=== PATIENT | male | born 1980 | race Caucasian/White ===

== ENCOUNTER 2025-11-09 20:25 | Emergency (ER) | payer OTHER, SELFPAY ==
[2025-11-09 20:35] VITALS: BP 148/95; PULSE 122; RESP 18; TEMP 37.6; O2SAT 100; BMI 28.0
[2025-11-09 20:39] VITALS: BP 148/95; PULSE 120; RESP 18; TEMP 37.6; O2SAT 98
--- NOTE | 2025-11-09 20:45 | XR_ITS ---
PROCEDURE INFORMATION: Exam: XR Chest Exam date and time: 11/09/2025 9:32 PM Age: 45 years old Clinical indication: Pain; Cough and shortness of breath; Other: Cp TECHNIQUE: Imaging protocol: Radiologic exam of the chest. Views: 2 views. COMPARISON: No relevant prior studies available. FINDINGS: Lungs: Normal. Pleural spaces: Normal. Heart/Mediastinum: Normal. Bones/joints: No acute abnormality. IMPRESSION: No acute findings.
[2025-11-09 20:48] LABS: Coronavirus 19, PCR Not Detected (NotDetected); Influenza A, PCR Not Detected (NotDetected)
--- NOTE | 2025-11-09 20:48 | ED_ITS ---
<Statement entered by Shawn Galvez DO - 11/10/25 01:56> I was consulted by the FERNY, and we discussed the complexity of problems being addressed. I approved the treatment and management plan for this patient's care in the emergency department, thus performing a substantive portion of the medical decision making. Shawn Galvez DO Agree with FERNY note above. During this patient's stay we did obtain an EKG which was personally interpreted by me and demonstrated sinus tachycardia rate of 114 bpm, normal axis, no MD prolongation, narrow QRS, no QTc prolongation. No ST elevation or depression. No overt signs of ischemia or arrhythmia. Discharge Plan Disposition Patient Disposition: Home, Self-Care Prescriptions Prescriptions: New oseltamivir [Tamiflu] 75 mg capsule 75 mg PO DAILY Qty: 5 0RF Activity Restrictions/Add. Instructions Additional Instructions/Restrictions: You were seen in emergency room department today and diagnosed with influenza. You have been called in prescription for Tamiflu. Since you are on the tail end of the 48 hour sven of when symptoms initially started, Tamiflu may make your symptoms a bit worse. You may get very minimal relief/benefits from taking Tamiflu. You should take a total of 5 doses of Tamiflu. Alternate with Motrin and Tylenol for symptom relief body aches and chills. Clinical Impressions Clinical Impression: Influenza Instructions Patient Instructions: Cough Print Language Print Language: Albanian Discharge ED Provider: Shawn Galvez General Adult HPI General Chief complaint: Cough Stated complaint: dizziness,pain in arms,pain all over body Time Seen by Provider: 11/09/25 20:37 Mode of Arrival: Ambulatory Source of Information: Patient Description of Symptoms (Recalled from ER Triage Doc. by RN): PT presents to the ED for evaluation of Cough/congestion, and facial tingling. PT has been feeling bad x3 days History of Present Illness HPI narrative: Danilo Dsouza is a 45-year-old male who presents emergency room tonight with complaints of generalized malaise of fatigue, headache, chest pressure, mild shortness of breath. Patient is from [place], flew in from [facility] 3 days ago. Denies any otherwise known sick contacts. States he has had some generalized weakness that started 3 days ago, chest tightness, and paresthesias throughout his whole body. Also complains of a headache, sinus congestion and chest congestion. Subjective fever reported with bodyaches and chills. Patient has no prior medical history. Does not take any medications daily. No history of DVT or PE, no history of heart disease, no stents in his heart. Does not take any blood thinners. Denies any alcohol, illicit drug use. Does use a vape. Please note that the above description of symptoms, and this electronic medical record under categorization of recalled from ER triage doctor by RN are reflective of an initial nursing assessment, however, is not reflective of my full history and physical exam that was personally taken and clarified. Consequentially, this proceeding description of symptoms, which may include the patient's cauterized chief complaint in the EMR, do not reflect my personal clinical impression, and the ultimate description of the history of present illness stated complaints should be deferred to this section of this note. Unless stated otherwise were congruent with the section of the note, additional signs, symptoms, or incongruence can be interpreted as in or accurate with my clinical impression. Related Data Previous Rx's ?Medication ?Instructions ?Recorded oseltamivir 75 mg capsule (Tamiflu) 75 mg PO DAILY #5 caps 11/09/25 Allergies Allergy/AdvReac Type Severity Reaction Status Date / Time No Known Allergies Allergy Verified 11/09/25 21:06 [facility] Disclaimer: The information contained in this section may have been updated after the patient was seen, as this information can be updated by other users. Social History (Updated 11/09/25 @ 22:29 by Dedra Sutherland APRN) Smoking Status: Current every day smoker alcohol intake: never current occupational status: employed Travel in the last 8 weeks?: Inside the [place] Have you lived/traveled outside US in past 30 days?: No Contact w/someone who lives/traveled outside US past 30 days?: No Exposure to someone with infectious disease in past 14 days?: No Do you have a fever (greater than 100.4 F or 38 C)?: No Have you tested positive for COVID-19?: No Exposed to someone with COVID-19 in past 14 days?: No Do you have a sore throat?: No Do you have a cough?: No Do you have any weakness?: No Do you have any diarrhea?: No Are you experiencing any unusual bleeding?: No Do you have any muscle aches/pain?: No Do you have any abdominal pain?: No Are you experiencing loss of taste or smell?: No ROS Obtained: Yes All systems reviewed & no additional complaints except as documented Physical Exam General General appearance: alert and in no apparent distress Head Head exam: atraumatic and normocephalic Eye Eye exam: Present PERRL and EOMI Neck Neck exam: Present trachea midline Chest Chest inspection: Present symmetric chest wall rise Respiratory Respiratory exam: Present normal lung sounds bilaterally Cardiovascular Cardiovascular exam: Present regular rate and normal rhythm Abdominal Exam Abdominal exam: Present soft and normal bowel sounds; Absent tenderness Extremities Exam Extremities exam: Present normal inspection and full ROM Neurological Exam Neurological exam: Present alert and oriented X3 Skin Skin exam: Present warm, dry and intact Medical Decision Making Medical Records Screening: Per USPSTF and CDC recommendations, given the prevalence of disease in our region, it is our hospital?s policy to screen for HIV and viral Hepatitis for all patients aged 18 and over and those with ongoing risk factors. Naeem Inquiry Pt receiving controlled substance: No Vital Signs: 11/09/25 20:35 11/09/25 20:39 11/09/25 21:00 Temperature 99.7 F H 99.7 F H Temperature Source Oral Pulse Rate 120 H 110 H Pulse Rate [Right] 122 H Respiratory Rate 18 18 Blood Pressure 148/95 H 144/91 H Blood Pressure [Right Arm] 148/95 H Blood Pressure Mean 102 Blood Pressure Mean [Right Arm] 112 02 Sat by Pulse Oximetry 100 98 96 Oxygen Delivery Method Room Air Room Air 11/09/25 22:21 Temperature 98.6 F Temperature Source Oral Pulse Rate 100 H Pulse Rate [Right] Respiratory Rate 16 Blood Pressure 133/73 Blood Pressure [Right Arm] Blood Pressure Mean Blood Pressure Mean [Right Arm] 02 Sat by Pulse Oximetry Oxygen Delivery Method Room Air Lab Data Lab Results 11/09/25 20:43: SARS-CoV-2 (PCR) Not detected, Influenza A Untype (PCR) Not detected, Influenza Type B (PCR) Detected A 11/09/25 20:55: WBC 8.9, RBC 5.27, Hgb 15.7, Hct 45.7, MCV 86.7, MCH 29.8, MCHC 34.4, RDW 12.5, Plt Count 178, MPV 9.3, Neut % (Auto) 81.2 H, Lymph % (Auto) 11.1, Armstrong % (Auto) 7.3, Eos % (Auto) 0.0 L, Baso % (Auto) 0.3, Neut # (Auto) 7.2, Lymph # (Auto) 1.0, Armstrong # (Auto) 0.7, Eos # (Auto) 0.0, Baso # (Auto) 0.0, Sodium 135 L, Potassium 4.0, Chloride 99, Carbon Dioxide 24, Anion Gap 16.0 H, BUN 13, Creatinine 1.20, Estimated Creat Clear 112, Estimated GFR 65, Est GFR ( Amer) 79, Glucose 109 H, Calcium 9.0, Total Bilirubin 1.0, AST 33, ALT 32, Alkaline Phosphatase 62, Troponin I < 0.01, Total Protein 7.9, Albumin 4.9, Globulin 3.0, Albumin/Globulin Ratio 1.6 11/09/25 20:55 11/09/25 20:55 Orders (Tests/Meds): ED MEDICATIONS Discontinued Medications Generic Name Dose Route Start Last Admin Trade Name Freq PRN Reason Stop Dose Admin Sodium Chloride 500 mls @ 999 mls/hr 11/09/25 20:50 11/09/25 21:56 Sod Chlor 0.9% 1000ml Bag IV 11/09/25 21:20 Infused .Q31M ONE Infusion Ketorolac Tromethamine 30 mg 11/09/25 21:52 11/09/25 21:58 Ketorolac 30mg/Ml Vial IV 11/09/25 21:53 30 mg ONCE ONE Administration ORDERS Category Date Time Status CXR 2 view (NOT portable) [XR chest 2V] Stat Exams 11/09/25 20:45 Taken CBC w/Auto Diff [Complete Blood Count Auto Diff] Stat Lab 11/09/25 20:55 Completed CMP [Comprehensive Metabolic Panel] Stat Lab 11/09/25 20:55 Completed Rapid PCR Covid and Flu A/B Stat Lab 11/09/25 20:43 Completed Trop I [Troponin I] Stat Lab 11/09/25 20:55 Completed Troponin I Q3H Lab 11/09/25 23:45 Ordered Troponin I Q3H Lab 11/10/25 02:45 Ordered Medical Decision Narrative: In summary patient is an 45-year-old who presents emergency department for evaluation of generalized malaise and fatigue, body aches, chills, and paresthesias. Subjective fever noted with bodyaches and chills. Patient is from out of town from [place]. Also complaining of a mild headache with sinus congestion. Not described as worst headache of his life., No vision changes, no blurry vision, no focal neurodeficits noted. No slurred speech. Patient is hemodynamically stable, mildly tachycardic with a rate in the 110s upon arrival, mildly febrile with Tmax of 99.7. Unremarkable nonfocal physical exam. Differential diagnosis includes influenza, COVID, pneumonia, pulmonary embolus. Initial workup will be conducted with hematologic labs, EKG, troponin, chest x- ray, respiratory swabs. Initial interventions include crystalloid bolus of normal saline. Initial workup reviewed by sd hematologic labs essentially unremarkable, patient is noted to be positive for influenza B. Troponin was negative. Chest x-ray without focal infiltrate. Upon repeat evaluation patient continuing to complain of headache. Will give him a dose of Toradol and see if this helps to resolve his headache. Upon recheck, patient had virtually complete resolution of headache. Given this patient appropriate for discharge at this time. Patient will be discharged with a prescription for Tamiflu. If you decide to take Tamiflu, you should take a total of 5 doses. Okay to alternate with Tylenol and Motrin for chills and bodyaches. Strict return precautions were given. Critical Care Critical Care Time Critical Care Time: No
--- NOTE | 2025-11-09 20:52 | ECG_ITS ---
APPROVED REPORT Exam: Resting ECG HR:114 bpm ECG Measurements Heart Rate 114 AXES DE 138 P 72 QRSd 85 QRS 91 QT 285 T 46 QTc 352 Conclusion Sinus tachycardia Borderline right axis Normal intervals No STEMI Electronically signed by : Shawn Galvez, 11/10/2025 02:03:15
[2025-11-09] MEDS: 0.9 % SODIUM CHLORIDE 1000ML 500 ML 999 ML IV (20:55)
[2025-11-09 20:58] LABS: Hematocrit 45.7 % (42.0-52.0); Hemoglobin 15.7 g/dL (14.1-18.0); Immature Granulocytes % 0.1 %; Mean Corpuscular HGB Conc 34.4 g/dL (31.8-35.4); Mean Corpuscular Hemoglobin 29.8 pg (27.0-31.2); Mean Corpuscular Volume 86.7 fl (80-94); Nucleated Red Blood Cells % 0 %; Platelet Count 178 K/mm3 (142-424); Red Blood Count 5.27 M/mm3 (4.60-6.20); Red Cell Distribution Width-SD 39.8 fL; White Blood Count 8.9 K/mm3 (4.8-10.8)
[2025-11-09 21:00] VITALS: BP 144/91; PULSE 110; O2SAT 96
--- OUTSIDE RECORDS SUMMARY | 2025-11-09 21:07 | XMS_ITS | Continuity of Care Document ---
Author Name [facility] Organization [facility] Care Team Providers Care Feeder Associate Name Role Phone [facility] Unavailable Unavailable Problems Combined list of problems from Department of Defense and Veterans Affairs facilities. It does not include entries that were removed or entered in error. Problem Status Onset Date Problem Type Date of Resolution Comments Source Anxiety * (ICD-9-CM 300.00/300.09) Active Condition [facility] Health Maintenance (ICD-9-CM V65.9) Active [facility] Knee Pain Active Condition [facility] Nicotine Dependence Active Condition [facility] Pruritus * (ICD-9-CM 698.9) Active Condition Sep 07 2 Entered By: MARISEL QUINTANILLA Comment: Left ear canal. [facility] Routine General Medical Examination at a Health Care Facility * (ICD-9-CM V70.0) Active Condition [facility] Screening for other specified conditions (ICD-9-CM V82.89) Active Condition Sep 07 12 Entered By: MARISEL QUINTANILLA Comment: Screening for Lyme disease [facility] Tobacco Use Disorder * (ICD-9-CM 305.1) Active Condition [facility] visit for: administrative purpose Inactive Condition CHRONIC LEFT KNEE PATELLOFEMORAL PAIN, S/P KNEE SURGERY. MED BOARD REPORTS FIT FOR CONTINUED ACTIVE DUTY SERVICE.SUITABIL ITY SCREENING FORMS COMPLETED. FOUND UNFIT FOR OPERATIONAL DUTY. FIT FOR SHORE DUTY ONLY WITH RESTRICTIONS. RTC PRN. [facility] visit for: administrative purpose Inactive Condition med board dictation. med rec reveiwed. [facility] visit for: physical medical evaluation board (MEB) Inactive Condition [facility] nonspecific abnormal findings Active Condition [facility] visit for: follow-up exam Inactive Condition [facility] other symptoms referable to A joint hand Active Condition [facility] nicotine dependence Active Condition [facility] Health Maint. Dr. Oliveros. Estab Patient Admin. Ped. Pneumogram Inactive Condition [facility] Patient Counseling: Active Condition [facility] visit for: postsurgical exam Inactive Condition [facility] joint pain, localized in the knee Active Condition [facility] Allergies, Adverse Reactions, Alerts Combined list of allergies from Department of Defense and Veterans Affairs facilities. It does not include entries that were removed or entered in error. Substance Category Reaction Severity Reaction type Status Date Reported Comments Source No Known Allergies Drug allergy (disorder) active 10/12/2006 [facility] Mary Ann Valencia Immunizations Combined list of available immunizations from the Department of Defense and Veterans Affairs facilities. Immunization Series Date Given Administered By Site Reaction Lot Number CVX Code Drug Examiner Rating Clerk Status Comments Source TD(ADULT) UNSPECIFIED FORMULATION 2006 139 complet ed rt delt [place] [facility] Encounters Combined list of: 1) Encounters from Department of Veterans Affairs facilities going backup to the last 18 months, not all [place] inpatient encounters are included; 2) Encounters from the Department of [facility] facilities going backup to 280 months. Location Location Details Encounter Type Encounter Number Reason For Visit Attending Provider ADM Date DC Date Status Disposition Source [place], [place]([facility]) OUTPATIENT [id number] SANA RE-EVAL UATION/ POSS RELEASE INESSA GARCIA 01/16 Released with Work/Duty Limitations [facility] [place]) [place]([facility]) OUTPATIENT [id number] SANA REVIEW INESSA GARCIA 02/05 Released with Work/Duty Limitations [facility] [place]) [place]) OUTPATIENT [id number] positiv e parfq INESSA GARCIA 02/09 Released with Work/Duty Limitations [facility] [place]) [place]) OUTPATIENT [id number] INESSA LANGE 04/29 Released with Work/Duty Limitations [facility] [place] [place] OUTPATIENT [id number] MED KAREN MOORE 08/04 Released w/o Limitations [facility] [place]) [place]) OUTPATIENT [id number] ANTHONY GARCIA ON KAREN MORRIS 08/19 Released with Work/Duty Limitations [place]) [facility] [place] OUTPATIENT [id number] CARLENE QUIJANO/ 6100/6 BARTJANET 10/12 Released with Work/Duty Limitations [place]([facility]) Procedures Combined list of: 1) Procedures from Department of Veterans Affairs facilities going back up to thelast 18 months, not all VA non-surgical procedures are included; 2) All procedures from the Department of Defense facilities. Procedure Procedure Type Code Date Perfomer Comments Sour e SCREENING TEST OF VISUAL ACUITY, QUANTITATIVE, BILATERAL 08/04/2006 [facility] EDUCATIONAL SUPPLIES, SUCH BOOKS, TAPES, AND PAMPHLETS, FOR THE PATIENT'S EDUCATION AT COST TO PHYSICIAN OR OTHER QUALIFIED HEALTH CRUISE DIRECTOR 02/09/2006 [facility] EDUCATIONAL SUPPLIES, SUCH BOOKS, TAPES, AND PAMPHLETS, FOR THE PATIENT'S EDUCATION AT COST TO PHYSICIAN OR OTHER QUALIFIED HEALTH CRUISE DIRECTOR 06/04/2005 [facility] RADIOLOGIC EXAMINATION, FOOT; COMPLETE, MINIMUM OF 3 VIEWS 06/03/2005 [facility] PURE TONE AUDIOMETRY (THRESHOLD); AIR ONLY 04/30/2005 [facility] DETERMINATION OF VENOUS PRESSURE 12/27/2004 [facility] PURE TONE AUDIOMETRY (THRESHOLD); AIR ONLY 05/01/2004 [facility] COMPREHENSIVE AUDIOMETRY THRESHOLD EVALUATION AND SPEECH RECOGNITION ([id number] AND [id number] COMBINED) 07/07/2003 [facility] VIS FUNCT SCREEN,AUTOMAT/SEMI- AUTOMAT BILAT QUANT DETERM VISUAL ACUITY,OCULAR ALIGN,COLOR VISION,PSEUDOISOCHRO MAT PLATES,& FIELD VIS (MAY INC ALL/SOME SCRN DETERM FOR CONTRAST SENSITIV,VIS UND GLARE) 05/15/2003 [facility] VIS FUNCT SCREEN,AUTOMAT/SEMI- AUTOMAT BILAT QUANT DETERM VISUAL ACUITY,OCULAR ALIGN,COLOR VISION,PSEUDOISOCHRO MAT PLATES,& FIELD VIS (MAY INC ALL/SOME SCRN DETERM FOR CONTRAST SENSITIV,VIS UND GLARE) 05/03/2003 [facility] Threshold Audiogram (Pure Tone) Threshold Audiogram (Pure Tone) [id number] 08/04/2006 IZA TAYLOR DoD Screening Test Of Visual Acuity, Quantitative, Bilateral Screening Test Of Visual Acuity, Quantitative, Bilateral [id number] 08/04/2006 IZA TAYLOR [facility] Screening Test Of Visual Acuity, Quantitative, Bilateral Screening Test Of Visual Acuity, Quantitative, Bilateral [id number] 02/12/2006 INESSA GARCIA [facility] Physician Supervised Services Provision Of Educational Supplies Physician Supervised Services Provision Of Educational Supplies [id number] 02/12/2006 INESSA GARCIA [facility] Social History Combined list of available smoking, tobacco, and other social history from Department of Defense and Veterans Affairs facilities. Social History Type Response Date Comment [facility] e Tobacco smoking status [facility] TOBACCO CURRENT USER 09/07/2012 today. [facility] History of tobacco use V9 CURRENT TOBACCO USER 03/19/2009 [facility] History of tobacco use V9 QUIT TOBACCO IN THE LAST 12 MONTHS 03/13/2008 [facility] History of tobacco use V9 CURRENT TOBACCO USER 02/04/2007 [facility] This section is an empty social history section. DoD
[2025-11-09 21:08] LABS: Albumin Level 4.9 g/dl (3.5-5.0); Chloride 99 mmol/L (98-107); Potassium 4.0 mmoL/L (3.5-5.1); Sodium 135 mmol/L (136-145)
--- OUTSIDE RECORDS SUMMARY | 2025-11-09 21:08 | XMS_ITS | Clinical Summary ---
Author Organization [facility] Health Address [address] [place] [address] Care Team Providers Care Sports Centre Manager Name Role Phone Unavailable Primary Care Provider Unavailabl e Social History Tobacco Use Types Packs/Day Years Used Date Smoking Tobacco: Never Assessed Sex and Gender Information Value Date Recorded Sex Assigned at Not on file Legal Sex Male 1:42 PM PST Gender Identity Not on file Sexual Orientation Not on file Plan of Treatment Not on file
--- OUTSIDE RECORDS SUMMARY | 2025-11-09 21:09 | XMS_ITS | Encounter Summary ---
Author Organization [facility] Address [address] [place] [address] Care Team Providers [employer] Supervisor Name Role Phone Unavailable Primary Care Provider Unavailabl e Prior Encounters Date Type Department Care Team Description 12/05/2019 Converted CPS Chart Documents [facility] [address] [phone] <No scans attached> 12/05/2019 Converted 13x Documents [facility] [address] [phone] <No scans attached> Plan of Treatment Not on file Procedures Procedure Name Priority Date/Time Associated Diagnosis Comments CANCELLED APPOINTMENT Routine 03/29/2020 12:00 AM PDT CANCELLED APPOINTMENT Routine 03/29/2020 12:00 AM PDT CANCELLED APPOINTMENT Routine 03/29/2020 12:00 AM PDT PERIO MAINTENANCE Routine 01/13/2020 12: 00 AM PST ORAL HYGIENE INSTRUCTIONS Routine 2019 12:00 AM PST 1 FM IRR W/PERIO MAINT Routine 0 12:00 AM PST PERIODIC ORAL EVALUATION - ESTABLISHED PATIENT Routine 08/24/2019 12:00 AM PDT PERIO MAINTENANCE Routine 08/24/2019 12: 00 AM PDT ORAL HYGIENE INSTRUCTIONS Routine 2018 12:00 AM PDT 1 FM IRR W/PERIO MAINT Routine 9 12:00 AM PDT BITEWINGS - FOUR RADIOGRAPHIC IMAGES Routine 08/24/2019 12:00 AM PDT ADDITIONAL X-RAY Routine 08/24/2019 12:0 0 AM PDT ADDITIONAL X-RAY Routine 08/24/2019 12:0 0 AM PDT ADDITIONAL X-RAY Routine 08/24/2019 12:0 0 AM PDT SINGLE X-RAY Routine 08/24/2019 12:00 AM PDT CANCELLED APPOINTMENT Routine 08/22/2019 12:00 AM PDT PERIO MAINTENANCE Routine 06/03/2019 12: 00 AM PDT 15 B ARESTIN Routine 06/03/2019 12:00 AM PDT 1 FM IRR W/PERIO MAINT Routine 9 12:00 AM PDT PERIODIC ORAL EVALUATION - ESTABLISHED PATIENT Routine 12/24/2018 12:00 AM PST PERIO MAINTENANCE Routine 12/24/2018 12: 00 AM PST ORAL HYGIENE INSTRUCTIONS Routine 2018 12:00 AM PST 1 FM IRR W/PERIO MAINT Routine 9 12:00 AM PST BITEWINGS - FOUR RADIOGRAPHIC IMAGES Routine 12/24/2018 12:00 AM PST ADDITIONAL X-RAY Routine 12/24/2018 12:0 0 AM PST ADDITIONAL X-RAY Routine 12/24/2018 12:0 0 AM PST ADDITIONAL X-RAY Routine 12/24/2018 12:0 0 AM PST SINGLE X-RAY Routine 12/24/2018 12:00 AM PST PERIO MAINTENANCE Routine 10/25/2018 12: 00 AM PST ORAL HYGIENE INSTRUCTIONS Routine 2017 12:00 AM PST 1 FM IRR W/PERIO MAINT Routine 8 12:00 AM PST PERIODIC ORAL EVALUATION - ESTABLISHED PATIENT Routine 06/25/2018 12:00 AM PDT UR PERIODONTAL SCALING AND ROOT PLANING - FOUR OR MORE TEETH PER QUADRANT Routine 06/25/2018 12:00 AM PDT LL PERIODONTAL SCALING AND ROOT PLANING - FOUR OR MORE TEETH PER QUADRANT Routine 06/25/2018 12:00 AM PDT ORAL HYGIENE INSTRUCTIONS Routine 2017 12:00 AM PDT LR CAROL DECON/QD Routine 06/25/2018 12:00 AM PDT LL CAROL DECON/QD Routine 06/25/2018 12:00 AM PDT UL CAROL DECON/QD Routine 06/25/2018 12:00 AM PDT UR CAROL DECON/QD Routine 06/25/2018 12:00 AM PDT UL PERIODONTAL SCALING AND ROOT PLANING - ONE TO THREE TEETH PER QUADRANT Routine 06/25/2018 12:00 AM PDT LR PERIODONTAL SCALING AND ROOT PLANING - ONE TO THREE TEETH PER QUADRANT Routine 06/25/2018 12:00 AM PDT UR ANTIBACT IRR/QUAD Routine 06/25/2018 12:00 AM PDT UL ANTIBACT IRR/QUAD Routine 06/25/2018 12:00 AM PDT LR ANTIBACT IRR/QUAD Routine 06/25/2018 12:00 AM PDT LL ANTIBACT IRR/QUAD Routine 06/25/2018 12:00 AM PDT BITEWINGS - FOUR RADIOGRAPHIC IMAGES Routine 06/25/2018 12:00 AM PDT ADDITIONAL X-RAY Routine 06/25/2018 12:0 0 AM PDT ADDITIONAL X-RAY Routine 06/25/2018 12:0 0 AM PDT ADDITIONAL X-RAY Routine 06/25/2018 12:0 0 AM PDT SINGLE X-RAY Routine 06/25/2018 12:00 AM PDT ORAL HYGIENE INSTRUCTIONS Routine 2017 12:00 AM PST TOPICAL APPLICATION OF FLUORIDE VARNISH Routine 12/11/2017 12:00 AM PST PROPHYLAXIS - ADULT Routine 12/11/2017 1 2:00 AM PST PERIODIC ORAL EVALUATION - ESTABLISHED PATIENT Routine 12/11/2017 12:00 AM PST BITEWINGS - FOUR RADIOGRAPHIC IMAGES Routine 12/11/2017 12:00 AM PST ADDITIONAL X-RAY Routine 12/11/2017 12:0 0 AM PST ADDITIONAL X-RAY Routine 12/11/2017 12:0 0 AM PST ADDITIONAL X-RAY Routine 12/11/2017 12:0 0 AM PST ADDITIONAL X-RAY Routine 12/11/2017 12:0 0 AM PST SINGLE X-RAY Routine 12/11/2017 12:00 AM PST INTRAORAL PHOTO Routine 12/11/2017 12:00 AM PST INTRAORAL PHOTO Routine 12/11/2017 12:00 AM PST ORAL HYGIENE INSTRUCTIONS Routine 2016 12:00 AM PDT TOPICAL APPLICATION OF FLUORIDE VARNISH Routine 02/06/2017 12:00 AM PDT PROPHYLAXIS - ADULT Routine 02/06/2017 1 2:00 AM PDT PERIODIC ORAL EVALUATION - ESTABLISHED PATIENT Routine 02/06/2017 12:00 AM PDT BITEWINGS - FOUR RADIOGRAPHIC IMAGES Routine 02/06/2017 12:00 AM PDT ADDITIONAL X-RAY Routine 02/06/2017 12:0 0 AM PDT ADDITIONAL X-RAY Routine 02/06/2017 12:0 0 AM PDT ADDITIONAL X-RAY Routine 02/06/2017 12:0 0 AM PDT SINGLE X-RAY Routine 02/06/2017 12:00 AM PDT INTRAORAL PHOTO Routine 02/06/2017 12:00 AM PDT INTRAORAL PHOTO Routine 02/06/2017 12:00 AM PDT INTRAORAL PHOTO Routine 02/06/2017 12:00 AM PDT INTRAORAL PHOTO Routine 02/06/2017 12:00 AM PDT ORAL HYGIENE INSTRUCTIONS Routine 2015 12:00 AM PDT TOPICAL APPLICATION OF FLUORIDE VARNISH Routine 08/05/2016 12:00 AM PDT PROPHYLAXIS - ADULT Routine 08/05/2016 1 2:00 AM PDT PERIODIC ORAL EVALUATION - ESTABLISHED PATIENT Routine 08/05/2016 12:00 AM PDT BITEWINGS - FOUR RADIOGRAPHIC IMAGES Routine 08/05/2016 12:00 AM PDT ADDITIONAL X-RAY Routine 08/05/2016 12:0 0 AM PDT ADDITIONAL X-RAY Routine 08/05/2016 12:0 0 AM PDT ADDITIONAL X-RAY Routine 08/05/2016 12:0 0 AM PDT SINGLE X-RAY Routine 08/05/2016 12:00 AM PDT INTRAORAL PHOTO Routine 08/05/2016 12:00 AM PDT INTRAORAL PHOTO Routine 08/05/2016 12:00 AM PDT INTRAORAL PHOTO Routine 08/05/2016 12:00 AM PDT INTRAORAL PHOTO Routine 08/05/2016 12:00 AM PDT CANCELLED APPOINTMENT Routine 05/14/2016 12:00 AM PDT INTRAORAL PHOTO Routine 11/05/2015 12:00 AM PST INTRAORAL PHOTO Routine 11/05/2015 12:00 AM PST INTRAORAL PHOTO Routine 11/05/2015 12:00 AM PST INTRAORAL PHOTO Routine 11/05/2015 12:00 AM PST ORAL HYGIENE INSTRUCTIONS Routine 2014 12:00 AM PST TOPICAL APPLICATION OF FLUORIDE VARNISH Routine 11/02/2015 12:00 AM PST PROPHYLAXIS - ADULT Routine 11/02/2015 1 2:00 AM PST PERIODIC ORAL EVALUATION - ESTABLISHED PATIENT Routine 11/02/2015 12:00 AM PST BITEWINGS - FOUR RADIOGRAPHIC IMAGES Routine 11/02/2015 12:00 AM PST ADDITIONAL X-RAY Routine 11/02/2015 12:0 0 AM PST ADDITIONAL X-RAY Routine 11/02/2015 12:0 0 AM PST ADDITIONAL X-RAY Routine 11/02/2015 12:0 0 AM PST SINGLE X-RAY Routine 11/02/2015 12:00 AM PST ORAL HYGIENE INSTRUCTIONS Routine 2014 12:00 AM PDT TOPICAL APPLICATION OF FLUORIDE VARNISH Routine 04/27/2015 12:00 AM PDT PROPHYLAXIS - ADULT Routine 04/27/2015 1 2:00 AM PDT PERIODIC ORAL EVALUATION - ESTABLISHED PATIENT Routine 04/27/2015 12:00 AM PDT BITEWINGS - FOUR RADIOGRAPHIC IMAGES Routine 04/27/2015 12:00 AM PDT ADDITIONAL X-RAY Routine 04/27/2015 12:0 0 AM PDT ADDITIONAL X-RAY Routine 04/27/2015 12:0 0 AM PDT ADDITIONAL X-RAY Routine 04/27/2015 12:0 0 AM PDT SINGLE X-RAY Routine 04/27/2015 12:00 AM PDT INTRAORAL PHOTO Routine 04/27/2015 12:00 AM PDT INTRAORAL PHOTO Routine 04/27/2015 12:00 AM PDT INTRAORAL PHOTO Routine 04/27/2015 12:00 AM PDT INTRAORAL PHOTO Routine 04/27/2015 12:00 AM PDT PROPHYLAXIS - ADULT Routine 11/24/2014 1 2:00 AM PST PERIODIC ORAL EVALUATION - ESTABLISHED PATIENT Routine 09/15/2014 12:00 AM PDT PANORAMIC RADIOGRAPHIC IMAGE Routine 09/15/2014 12:00 AM PDT BITEWINGS - FOUR RADIOGRAPHIC IMAGES Routine 09/15/2014 12:00 AM PDT ADDITIONAL X-RAY Routine 09/15/2014 12:0 0 AM PDT ADDITIONAL X-RAY Routine 09/15/2014 12:0 0 AM PDT ADDITIONAL X-RAY Routine 09/15/2014 12:0 0 AM PDT SINGLE X-RAY Routine 09/15/2014 12:00 AM PDT 8 RETAINER CROWN - CERECFIRED CRWN - POST Routine 05/24/2014 12:00 AM PDT 6 RETAINER CROWN - CERECFIRED CRWN - POST Routine 05/24/2014 12:00 AM PDT 7 PONTIC - CERECFIRED CRWN - POST Routine 05/24/2014 12:00 AM PDT 8 CORE BUILDUP, INCLUDING ANY PINS WHEN REQUIRED Routine 05/24/2014 12:00 AM PDT 6 CORE BUILDUP, INCLUDING ANY PINS WHEN REQUIRED Routine 05/24/2014 12:00 AM PDT NC X-RAY Routine 05/24/2014 12:00 AM PDT 8 PLACEMENT OF INTERIM IMPLANT ABUTMENT Routine 12/30/2013 12:00 AM PST 6 PLACEMENT OF INTERIM IMPLANT ABUTMENT Routine 12/30/2013 12:00 AM PST 7 PROVISIONAL PONTIC - FURTHER TREATMENT OR COMPLETION OF DIAGNOSIS NECESSARY Routine 12/30/2013 12:00 AM PST ADJUNCTIVE PRE-DIAGNOSTIC TEST THAT AIDS IN DETECTION OF MUCOSAL ABNORMALITIES Routine 12/30/2013 12:00 AM PST TOPICAL APPLICATION OF FLUORIDE VARNISH Routine 12/30/2013 12:00 AM PST PROPHYLAXIS - ADULT Routine 12/30/2013 1 2:00 AM PST COMPREHENSIVE ORAL EVALUATION - NEW OR ESTABLISHED PATIENT Routine 12/30/2013 12:00 AM PST PANORAMIC RADIOGRAPHIC IMAGE Routine 12/30/2013 12:00 AM PST INTRAORAL - COMPREHENSIVE SERIES OF RADIOGRAPHIC IMAGES Routine 12/30/2013 12:00 AM PST INTRAORAL PHOTO Routine 12/30/2013 12:00 AM PST INTRAORAL PHOTO Routine 12/30/2013 12:00 AM PST INTRAORAL PHOTO Routine 12/30/2013 12:00 AM PST INTRAORAL PHOTO Routine 12/30/2013 12:00 AM PST 6 MIFL COMPOSITE FILLING Routine 014 12:00 AM PST 8 DIFL COMPOSITE FILLING Routine 014 12:00 AM PST 27 L COMPOSITE FILLING Routine 4 12:00 AM PST 22 L COMPOSITE FILLING Routine 4 12:00 AM PST Visit Diagnoses Not on file
[2025-11-09 21:11] LABS: Alanine Aminotransferase 32 U/L (12-78); Albumin/Globulin Ratio 1.6 (1.1-1.8); Alkaline Phosphatase 62 U/L (38-126); Anion Gap 16.0 mEq/L (5-15); Aspartate Amino Transferase 33 U/L (17-59); Bilirubin,Total 1.0 mg/dl (0.2-1.3); Blood Urea Nitrogen 13 mg/dl (9-20); Calcium 9.0 mg/dl (8.4-10.2); Carbon Dioxide 24 mmol/L (22.0-30.0); Creatinine Clearance Estimated 112 mL/min (50-200); Creatinine,Serum 1.20 mg/dl (0.66-1.25); Estimated Glomerular Filt Rate 65 ml/min (>60); GFR (African American) 79 ML/MIN (>60); Globulin 3.0 g/dL (1.3-3.2); Glucose 109 mg/dl (74-100); Total Protein,Serum 7.9 g/dl (6.3-8.2)
[2025-11-09 21:16] LABS: Influenza B, PCR Detected (NotDetected)
[2025-11-09 21:23] LABS: Troponin I < 0.01 ng/ml (0.00-0.034)
[2025-11-09] MEDS: KETOROLAC 30MG/ML VIAL 30 MG IV (21:58)
[2025-11-09 22:21] VITALS: BP 133/73; PULSE 100; RESP 16; TEMP 37; O2SAT 100
== END 2025-11-09 22:30 | disposition home or self-care (01) ==
PROVIDERS: Nurse Practitioner Acute Care; Emergency Provider Student in an Organized Health Care Education/Training Program
DX: J10.1 Influenza due to other identified influenza virus with other respiratory manifestations (principal); R00.0 Tachycardia, unspecified; R51.9 Headache, unspecified; R53.81 Other malaise; R42 Dizziness and giddiness; F17.290 Nicotine dependence, other tobacco product, uncomplicated
CPT/HCPCS: 71046; 80053; 84484; 85025; 87636; 93005; 96374; 99284; 99285; J1885; J7030